=== PATIENT | male | born 1950 | race Caucasian/White ===

== ENCOUNTER → 2025-03-26 07:07 | Outpatient (REF) | payer MEDICARE, OTHER, SELFPAY | LOC: HWRCS 07:07 | PROVIDERS: ATTENDING PHYSICIAN Physician Assistant Medical; FAMILY PHYSICIAN Internal Medicine | DX: I70.0 Atherosclerosis of aorta (principal); R06.09 Other forms of dyspnea; E11.22 Type 2 diabetes mellitus with diabetic chronic kidney disease | CPT/HCPCS: 78452; 93017; A9500 ==